=== PATIENT | male | born 2000 | race African-American/Black ===

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

== ENCOUNTER 2025-05-19 04:28 | Emergency (ER) | payer SELFPAY ==
[2025-05-19] VITALS (11 sets, daily range): BP systolic 113–141; BP diastolic 73–87; PULSE 66–97; RESP 16; TEMP 36.9–37.3; O2SAT 98–100; BMI 28.0
--- NOTE | 2025-05-19 04:30 | ED_ITS ---
Discharge Plan Disposition Patient Disposition: Home, Self-Care Prescriptions Prescriptions: No Action [id number] 473 ML syrup 10 ml PO Q4H PRN (Reason: Cough) Qty: 250 0RF fluticasone propionate 120 SPR/BOT bottle 2 spr NS DAILY Qty: 1 0RF Referrals Follow up/Referrals: Provider,Referral, [Primary Care Provider, Medical] - See instructions Activity Restrictions/Add. Instructions Additional Instructions/Restrictions: Please follow-up with your primary care provider. Please return to the emergency department if you develop any new or worsening symptoms or become concerned for your health. Clinical Impressions Clinical Impression: Migraine, Nausea & vomiting Instructions Patient Instructions: DI for Diarrhea and Traveler's Diarrhea in Adults, DI for Diarrhea and Traveler's Diarrhea in Children, DI for Nausea in Adults, DI for Nausea in Children Print Language Print Language: Bengali Discharge ED Provider: Hemanth Lacey General Adult HPI General Chief complaint: Nausea/Vomiting/Diarrhea Stated complaint: migraine, vomiting Time Seen by Provider: 05/19/25 04:30 History of Present Illness HPI narrative: 25-year-old male with no significant past medical history presents for headache and vomiting. 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 His headache and nausea have been worsening and he has been vomiting at home. He reports his headache is frontal in nature. Denies any abdominal pain. Denies any diarrhea. Reports light and noise sensitivity. Reports that he does sometimes get headaches but this is worse than normal. Related Data Previous Rx's ?Medication ?Instructions ?Recorded [id number]-[id number]-[id number] 10 ml PO Q4H PRN [facility] ##250 08/26/17 2 mg-30 mg-10 mg/5 mL oral syrup fluticasone propionate 50 2 spr NS DAILY ##1 08/26/17 mcg/actuation nasal spray,suspension Allergies Allergy/AdvReac Type Severity Reaction Status Date / Time No Known Allergies Allergy Verified 08/26/17 16:52 [facility] Disclaimer: The information contained in this section may have been updated after the patient was seen, as this information can be updated by other users. Social History Smoking Status: Current some day smoker alcohol intake: never current occupational status: employed Travel in the last 8 weeks?: None Other Medical History Have you received the Flu Vaccine for this season: No Have you received the Pneumonia Vaccine: No ROS Obtained: Yes All systems reviewed & no additional complaints except as documented Physical Exam General General appearance: alert and in no apparent distress Head Head exam: atraumatic and normocephalic Eye Eye exam: Present normal appearance, PERRL and EOMI ENT ENT exam: Present normal oropharynx and normal external ear exam Neck Neck exam: Present normal inspection and full ROM Chest Chest inspection: Present normal inspection and symmetric chest wall rise; Absent tenderness Respiratory Respiratory exam: Present normal lung sounds bilaterally; Absent respiratory distress Cardiovascular Cardiovascular exam: Present regular rate and normal rhythm Abdominal Exam Abdominal exam: Present soft; Absent distention, tenderness or guarding Extremities Exam Extremities exam: Present normal inspection; Absent edema or joint swelling Back Exam Back exam: Present normal inspection; Absent tenderness Neurological Exam Neurological exam: Present alert and oriented X3; Absent motor sensory deficit Psychiatric Psychiatric exam: Present normal affect and normal mood Skin Skin exam: Present warm, dry and normal color Lymphatic Lymphatic Findings: no adenopathy Medical Decision Making Medical Records Medical records reviewed: Yes I reviewed the patient's medical records. Screening: Per USPSTF and CDC recommendations, given the prevalence of disease in our region, it is our hospital?s policy to screen for HIV and viral Hepatitis for all patients aged 18 and over and those with ongoing risk factors. Frandy Inquiry Pt receiving controlled substance: No Frandy was queried for this patient: No Vital Signs: 05/19/25 04:29 05/19/25 04:40 05/19/25 04:45 Temperature 99.2 F Temperature Source Oral Pulse Rate 68 Pulse Rate [Left Radial] 90 Respiratory Rate 16 Blood Pressure 120/75 Blood Pressure [Right Arm] 141/73 H Blood Pressure Mean 85 Blood Pressure Mean [Right Arm] 95 Blood Pressure Source [Right Arm] Automatic Cuff Blood Pressure Position [Right Arm] Sitting 02 Sat by Pulse Oximetry 100 100 Oxygen Delivery Method Room Air 05/19/25 04:45 05/19/25 05:00 05/19/25 05:00 Temperature Temperature Source Pulse Rate 74 77 Pulse Rate [Left Radial] Respiratory Rate Blood Pressure 113/75 Blood Pressure [Right Arm] Blood Pressure Mean 84 Blood Pressure Mean [Right Arm] Blood Pressure Source [Right Arm] Blood Pressure Position [Right Arm] 02 Sat by Pulse Oximetry 100 100 Oxygen Delivery Method Lab Data Lab results reviewed: Yes I reviewed the patient's lab results. Orders (Tests/Meds): ED MEDICATIONS Generic Name Dose Route Start Last Admin Trade Name Freq PRN Reason Stop Dose Admin Sodium Chloride 1,000 mls @ 999 mls/hr 05/19/25 04:45 05/19/25 04:57 Sod Chlor 0.9% 1000ml Bag IV 05/19/25 05:45 999 mls/hr .Q1H1M SUKHWINDER Administration Discontinued Medications Generic Name Dose Route Start Last Admin Trade Name Freq PRN Reason Stop Dose Admin Acetaminophen 1,000 mg 05/19/25 04:34 05/19/25 04:56 Acetaminophen 500mg Tab PO 05/19/25 04:35 1,000 mg ONCE ONE Administration Magnesium Sulfate 2 gm in 50 mls @ 150 mls/hr 05/19/25 04:34 05/19/25 04:57 Magnesium Sulfate 2gm/50ml Premix IV 05/19/25 04:53 150 mls/hr ONCE ONE Administration Ketorolac Tromethamine 30 mg 05/19/25 04:34 05/19/25 04:56 Ketorolac 30mg/Ml Vial IV 05/19/25 04:35 30 mg ONCE ONE Administration Prochlorperazine Edisylate 10 mg 05/19/25 04:34 05/19/25 04:57 Prochlorperazine 10mg/2ml Vial IV 05/19/25 04:35 10 mg ONCE ONE Administration ORDERS Category Date Time Status HIV Combo Stat Lab 05/19/25 04:35 Received Hepatitis C Ab Qual. W/ RFX Stat Lab 05/19/25 04:35 Received Medical Decision Narrative: 25-year-old male without significant past medical history presents for headache, nausea vomiting. History was obtained via interactive discussion with patient. On arrival, patient is [afebrile, hemodynamically stable, satting appropriately, alert, oriented x4, GCS 15], moving all extremities spontaneously. Full physical exam performed and significant for no significant physical exam abnormalities no abdominal tenderness Differential includes but is not limited to migraine headache, tension headache, cluster headache, intracranial lesion. Patient was given migraine cocktail for symptomatic management and correction of underlying abnormalities. CT imaging of the head was considered, but deemed unnecessary due to no focal neurologic deficits. On reassessment patient reports symptomatic resolution. Interactive discussion with outpatient regarding his presentation. He was discharged in stable condition with return precautions. Procedures Risk/Benefits of Procedure(s) Were Explained: Yes Critical Care Critical Care Time Critical Care Time: No
[2025-05-19] MEDS: ACETAMINOPHEN 500MG TAB 1000 MG PO (04:56)
[2025-05-19] MEDS: KETOROLAC 30MG/ML VIAL 30 MG IV (04:56)
[2025-05-19] MEDS: PROCHLORPERAZINE 10MG/2ML VIAL 10 MG IV (04:57)
[2025-05-19] MEDS: 0.9 % SODIUM CHLORIDE 1000ML 1,000 ML 999 ML IV (04:57)
[2025-05-19] MEDS: MAGNESIUM SULFATE IN WATER 2 GM/50 ML PIGGYBACK IV (04:57)
[2025-05-19 05:57] LABS: Hepatitis C Ab Qual. W/ RFX NEGATIVE (Negative)
--- NOTE | 2025-05-19 13:00 | PC.NURSE ---
pt returned and asked if he could have a work note. I printed and handed it to him directly.
== END 2025-05-19 05:54 | disposition home or self-care (01) ==
PROVIDERS: Emergency Provider Emergency Medicine
DX: G43.909 Migraine, unspecified, not intractable, without status migrainosus (principal); R11.2 Nausea with vomiting, unspecified
CPT/HCPCS: 86803; 87389; 96365; 96375; 99284; 99285; J0780; J1885; J3475; J7030